=== PATIENT | male | born 1960 | race Caucasian/White ===

== ENCOUNTER → 2017-10-15 | Outpatient (CLI) | payer MEDICAID ==
[~2017-10-15] MED LIST: CLINDAMYCIN HC150 MG PO; CYCLOBENZAPRINE5 MG PO; FISH OIL CONC1000 MG PO; HYDROCHLOROTHIA25 M1 PO; KLONOPIN1 MG PO; LASIX20 MG PO; LORTAB 5/500 501 TAB PO; LOSARTAN POTAS100 MG PO; MELOXICAM7.5 MG PO; METOPROLOL SUCC50 M1 PO; MULTI VITAMINS1 TA1 PO; PANTOPRAZOLE SO40 M1 PO; PHENERGAN 25MG.25 M1 PO; VANCOMYCIN IV; ZOCOR40 MG PO; [UNRECOGNIZED DRUG - OTHER] IV
--- NOTE | 2017-10-15 16:40 | RADIOLOGY REPORT PS360 ---
[id number] VIEWS HISTORY: Pain following injury RT SHOULDER INJURY ORDERING PHYSICIAN: Robert Henley MD PATIENT AGE: 57 years COMPARISON: None FINDINGS: There are mild osteoarthritic changes of the acromioclavicular joint with an accessory ossicle at the lateral aspect of the acromium. Hypertrophic changes are present along the inferior aspect of the acromion with subacromial stenosis. There are mild osteoarthritic changes of the glenohumeral joint. No fracture or dislocation. No lytic or blastic change. IMPRESSION: Mild osteoarthritis, no acute finding
== END ==
LOC: RAD 16:21
DX: S49.91XA Unspecified injury of right shoulder and upper arm, initial encounter (principal)